=== PATIENT | female | born 1935 | race African-American/Black ===

== ENCOUNTER → 2016-02-26 | Outpatient (CLI) | payer MEDICARE ==
[~2016-02-26] MED LIST: ALLO100 PO; AZOR PO; CORE25TA PO; POTA-243 PO; TEKT300T PO
[2016-02-26 11:19] LABS: AUTOMATED NEUTROPHIL # 1.2 TH/MM3 (1.8-7.7); BASOPHIL % 1.1 % (0.0-2.0); EOSINOPHIL # 0.3 TH/MM3 (0-0.4); HEMO FLAGS DIFF FINAL; LYMPH % 41.4 % (9.0-44.0); LYMPHOCYTE # 1.4 TH/MM3 (1.0-4.8); MEAN CORPUSCULAR HEMOGLOBIN 31.6 PG (27.0-34.0); MEAN CORPUSCULAR HGB CONC 33.2 % (32.0-36.0); MONO % 13.4 % (0.0-8.0); NEUT % 34.1 % (16.0-70.0); PLATELET COUNT 263 TH/MM3 (150-450); RED BLOOD COUNT 3.69 MIL/MM3 (4.00-5.30); RED CELL DISTRIBUTION WIDTH 16.4 % (11.6-17.2); WHITE BLOOD COUNT 3.4 TH/MM3 (4.0-11.0)
[2016-02-26 11:31] LABS: ALKALINE PHOSPHATASE 93 U/L (45-117); ALT (GPT) 30 U/L (10-53); ANION GAP 9 MEQ/L (5-15); AST (GOT) 35 U/L (15-37); BICARBONATE 22.6 MEQ/L (21.0-32.0); BLOOD UREA NITROGEN 18 MG/DL (7-18); CHLORIDE 108 MEQ/L (98-107); GLOMERULAR FILTRATION RATE 82 ML/MIN (>89); GLUCOSE,FASTING 91 MG/DL (74-99); POTASSIUM 3.9 MEQ/L (3.5-5.1); SODIUM (NA) 140 MEQ/L (136-145); TOTAL BILIRUBIN ADULT 0.6 MG/DL (0.2-1.0); URIC ACID 6.4 MG/DL (2.6-6.0)
== END ==
LOC: ELAB 09:40
PROVIDERS: ATTEND Family Medicine
DX: I10 Essential (primary) hypertension (principal); E55.9 Vitamin D deficiency, unspecified; M10.9 Gout, unspecified; D70.9 Neutropenia, unspecified
CPT/HCPCS: 36415; 80053; 82306; 84550; 85025

== ENCOUNTER → 2016-07-01 | Outpatient (CLI) | payer MEDICARE ==
[2016-07-01 10:34] LABS: AUTOMATED NEUTROPHIL # 1.2 TH/MM3 (1.8-7.7); BASOPHIL % 1.1 % (0.0-2.0); EOSINOPHIL # 0.2 TH/MM3 (0-0.4); EOSINOPHIL % 5.8 % (0.0-4.0); HEMATOCRIT 35.8 % (35.0-46.0); HEMO FLAGS DIFF FINAL; LYMPH % 43.6 % (9.0-44.0); LYMPHOCYTE # 1.5 TH/MM3 (1.0-4.8); MEAN CELL VOLUME 89.3 FL (80.0-100.0); MEAN CORPUSCULAR HEMOGLOBIN 29.1 PG (27.0-34.0); MEAN CORPUSCULAR HGB CONC 32.6 % (32.0-36.0); MONO % 14.3 % (0.0-8.0); NEUT % 35.2 % (16.0-70.0); PLATELET COUNT 209 TH/MM3 (150-450); RED BLOOD COUNT 4.01 MIL/MM3 (4.00-5.30); RED CELL DISTRIBUTION WIDTH 17.3 % (11.6-17.2); WHITE BLOOD COUNT 3.4 TH/MM3 (4.0-11.0)
[2016-07-01 10:58] LABS: ALKALINE PHOSPHATASE 90 U/L (45-117); ALT (GPT) 38 U/L (10-53); ANION GAP 10 MEQ/L (5-15); AST (GOT) 45 U/L (15-37); BICARBONATE 22.9 MEQ/L (21.0-32.0); BLOOD UREA NITROGEN 23 MG/DL (7-18); CHLORIDE 109 MEQ/L (98-107); GLOMERULAR FILTRATION RATE 76 ML/MIN (>89); GLUCOSE,FASTING 89 MG/DL (74-99); POTASSIUM 3.4 MEQ/L (3.5-5.1); SODIUM (NA) 142 MEQ/L (136-145); TOTAL BILIRUBIN ADULT 0.5 MG/DL (0.2-1.0); URIC ACID 5.1 MG/DL (2.6-6.0)
[2016-07-01 11:42] LABS: BLOOD, URINE NEG (NEG); COMMENT (UR) CULTURE INDICATED; CULTURE IF INDICATED CULTURE INDICATED; GLUCOSE,URINE NEG (NEG); KETONE, URINE NEG (NEG); NITRITE,URINE NEG (NEG); PH, URINE 6.5 (5.0-8.5); SQUAMOUS EPITHELIAL CELL URINE 2 /hpf (0-5); URINE COLOR YELLOW (YELLW/STRAW)
[2016-07-01 11:53] LABS: BACTERIA, URINE MOD /hpf
== END ==
LOC: ELAB 08:49
PROVIDERS: ATTEND Family Medicine
DX: E55.9 Vitamin D deficiency, unspecified (principal); M10.9 Gout, unspecified; D70.9 Neutropenia, unspecified; E87.6 Hypokalemia; N39.0 Urinary tract infection, site not specified
CPT/HCPCS: 36415; 80053; 81001; 82306; 84550; 85025; 87086

== ENCOUNTER 2016-08-28 13:26 | Emergency (ER) | payer MEDICARE ==
[~2016-08-28] VITALS: Ht 162.6 cm; Wt 65.0 kg
[2016-08-28 13:28] VITALS: BP 183/84; PULSE 58; RESP 20; TEMP 97.8; O2SAT 100
[2016-08-28 14:00] VITALS: BP 155/67; PULSE 87; RESP 18; O2SAT 98
[2016-08-28] MEDS ORDERED: ASPI-119 PO (14:07)
[2016-08-28] MEDS ORDERED: CARV12.52 PO (14:07)
[2016-08-28] MEDS ORDERED: NIFE90TA2 (14:07)
[2016-08-28] MEDS ORDERED: FURO40TA PO (14:07)
[2016-08-28] MEDS ORDERED: ALLO300T2 PO (14:07)
[2016-08-28] MEDS ORDERED: OLME0.09 PO (14:07)
[2016-08-28] MEDS ORDERED: POTA-243 PO (14:07)
[2016-08-28] MEDS ORDERED: TIMO0.5S30 EACH EYE (14:07)
[2016-08-28] MEDS ORDERED: NIFE30TA61 PO (14:07)
[2016-08-28] MEDS ORDERED: KETOROLAC TROMETHAMINE 60 MG/2 ML (IM) VIAL IM ONE (14:30)
--- NOTE | 2016-08-28 15:54 | PD ---
HPI Chief Complaint: Pain: Acute or Chronic Time Seen by Provider: 15:00 Travel History International Travel<30 days: No Contact w/Intl Traveler<30days: No Traveled to known affect area: No History of Present Illness HPI 81-year-old female presents emergency department for evaluation of right low back and buttocks pain that radiates down into the leg. Patient reports this is been ongoing for approximately 2 weeks. She denies injury or fall. She reports similar pain in the past. The pain is unrelieved by Tylenol. Symptoms severity moderate. No alleviating or aggravating factors. Patient denies fever , incontinence, saddle anesthesia, numbness/weakness of lower extremities. PFSH Past Medical History Cancer: No Cardiovascular Problems: Yes (HTN) Chemotherapy: No (R BREAST) Diabetes: No Glaucoma: No Hepatitis: No Hiatal Hernia: No Hypertension: Yes Medical other: Yes (gout) Thyroid Disease: No Tetanus Vaccination: < 5 Years Past Surgical History Abdominal Surgery: Yes (CHOLECYSTECTOMY) Eye Surgery: Yes (LEFT EYE CATARACT EXTRACT, VITRECTOMY) Mastectomy: Yes (right breast ) Pacemaker: No Other Surgery: Yes Social History Alcohol Use: No Tobacco Use: No Substance Use: No Allergies-Medications (Allergen,Severity, Reaction): Coded Allergies: Penicillin (Verified Allergy, Severe, rash, 08/28/16) Reported Meds & Prescriptions Reported Meds & Active Scripts Active Reported Timolol Opth Drops 0.5 % Soln 1 Drop EACH EYE DAILY Klor-Con 10 (Potassium Chloride) 10 Meq Tab 10 Meq PO BID Allopurinol 300 Mg Tab 300 Mg PO DAILY Nifedipine ER 24 HR (Nifedipine) 30 Mg Tab 30 Mg PO DAILY Furosemide 40 Mg Tab 40 Mg PO DAILY Fantasma Low Dose (Aspirin) 81 Mg Tabdr 81 Mg PO DAILY Olmesartan 20 Mg Tab 20 Mg PO DAILY Carvedilol 12.5 Mg Tab 12.5 Mg PO BID Review of Systems Except as stated in HPI: all other systems reviewed are Neg General / Constitutional: No: Fever Eyes: No: Visual changes HENT: No: Headaches Cardiovascular: No: Chest Pain or Discomfort Respiratory: No: Shortness of Breath Gastrointestinal: No: Abdominal Pain Genitourinary: No: Dysuria Physical Exam Narrative GENERAL: There, well-appearing female no acute distress. SKIN: Focused skin assessment warm/dry. HEAD: Atraumatic. Normocephalic. EYES: Pupils equal and round. No scleral icterus. No injection or drainage. ENT: No nasal bleeding or discharge. Mucous membranes pink and moist. NECK: Trachea midline. No JVD. CARDIOVASCULAR: Regular rate and rhythm. No murmur appreciated. RESPIRATORY: No accessory muscle use. Clear to auscultation. Breath sounds equal bilaterally. GASTROINTESTINAL: Abdomen soft, non-tender, nondistended. Hepatic and splenic margins not palpable. MUSCULOSKELETAL: No obvious deformities. No clubbing. No cyanosis. No edema. 5 out of 5 strength in lower extremity is. Normal sensation. 2+ distal pulses. BACK: No CVA tenderness. No rash. No point tenderness on palpation of the spine. Point tenderness over the right sacroiliac joint and into the right buttocks. Positive straight leg raise. NEUROLOGICAL: Awake and alert. No obvious cranial nerve deficits. Motor grossly within normal limits. Normal speech. PSYCHIATRIC: Appropriate mood and affect; insight and judgment normal. Data Data Last Documented VS Vital Signs Date Time Temp Pulse Resp B/P Pulse Ox O2 Delivery O2 Flow Rate FiO2 08/28/16 14:00 87 18 155/67 98 Room Air 08/28/16 13:28 97.8 Orders Ketorolac Inj (Toradol Inj) (08/28/16 14:30) [facility] Medical Decision Making Medical Screen Exam Complete: Yes Emergency Medical Condition: Yes Differential Diagnosis Sciatica, lumbar strain, sacroiliac pain Narrative Course 81-year-old female with approximately 2 week history of right low back pain that radiates into the buttocks and down the leg. She reports she's had similar pain in the past. Pain is unrelieved by Tylenol. Physical exam is reassuring. She has no CVA tenderness. No midline spine tenderness. Her physical exam is consistent with sciatica. Patient be treated with a shot of Toradol and instructed to take [id number] NSAIDs follow up with her primary doctor. Reassessment of patient she reports symptom improvement. Pain is relieved after Toradol. She is stable and ready for discharge. Diagnosis Primary Impression: Sciatica Qualified Code: M54.31 - Sciatica of right side Referrals: Primary Care Physician Additional Instructions: Take Tylenol or [id number] Motrin as needed for pain. Follow up with her primary care doctor for reevaluation. Disposition: 01 DISCHARGE HOME Condition: Stable Margy Villar Aug 28, 2016 15:54
== END 2016-08-28 16:19 | disposition home or self-care (01) ==
LOC: NEPD 13:26
DX: M54.31 Sciatica, right side (principal); I10 Essential (primary) hypertension; M10.9 Gout, unspecified; Z79.82 Long term (current) use of aspirin; Z79.899 Other long term (current) drug therapy
CPT/HCPCS: 96372; 99284; J1885

== ENCOUNTER → 2017-01-03 | Outpatient (CLI) | payer MEDICARE ==
[~2017-01-03] MED LIST changes: -ALLO100 PO; +ALLO300T2 PO; +ASPI-119 PO; -AZOR PO; +CARV12.52 PO; -CORE25TA PO; +FURO40TA PO; +KLOR10TA PO; +NIFE30TA61 PO; +OLME0.09 PO; -POTA-243 PO; -TEKT300T PO; +TIMO0.5S30 EACH EYE
[2017-01-03 12:10] LABS: AUTOMATED NEUTROPHIL # 1.4 TH/MM3 (1.8-7.7); EOSINOPHIL # 0.2 TH/MM3 (0-0.4); EOSINOPHIL % 4.7 % (0.0-4.0); HEMATOCRIT 36.5 % (35.0-46.0); HEMO FLAGS DIFF FINAL; LYMPH % 45.3 % (9.0-44.0); LYMPHOCYTE # 1.7 TH/MM3 (1.0-4.8); MEAN CELL VOLUME 96.1 FL (80.0-100.0); MEAN CORPUSCULAR HEMOGLOBIN 31.3 PG (27.0-34.0); MEAN CORPUSCULAR HGB CONC 32.6 % (32.0-36.0); MONO % 12.8 % (0.0-8.0); NEUT % 36.2 % (16.0-70.0); PLATELET COUNT 230 TH/MM3 (150-450); RED CELL DISTRIBUTION WIDTH 16.3 % (11.6-17.2); WHITE BLOOD COUNT 3.8 TH/MM3 (4.0-11.0)
[2017-01-03 12:14] LABS: MUCUS URINE FEW /lpf (OCC); SQUAMOUS EPITHELIAL CELL URINE 3 /hpf (0-5); TRANSITIONAL EPI CELLS, URINE 5 /hpf
[2017-01-03 12:18] LABS: BLOOD, URINE NEG (NEG); GLUCOSE,URINE NEG (NEG); KETONE, URINE NEG (NEG); NITRITE,URINE NEG (NEG); URINE COLOR YELLOW (YELLW/STRAW)
[2017-01-03 12:41] LABS: ANION GAP 6 MEQ/L (5-15); AST (GOT) 49 U/L (15-37); BICARBONATE 24.8 MEQ/L (21.0-32.0); BLOOD UREA NITROGEN 27 MG/DL (7-18); CHLORIDE 106 MEQ/L (98-107); GLOMERULAR FILTRATION RATE 64 ML/MIN (>89); GLUCOSE,FASTING 84 MG/DL (74-99); POTASSIUM 3.7 MEQ/L (3.5-5.1); SODIUM (NA) 137 MEQ/L (136-145); URIC ACID 4.4 MG/DL (2.6-6.0)
[2017-01-03 12:42] LABS: ALT (GPT) 36 U/L (10-53)
[2017-01-03 12:44] LABS: ALKALINE PHOSPHATASE 90 U/L (45-117); TOTAL BILIRUBIN ADULT 0.7 MG/DL (0.2-1.0)
== END ==
LOC: ELAB 10:49
PROVIDERS: ATTEND Family Medicine
DX: E55.9 Vitamin D deficiency, unspecified (principal); M10.9 Gout, unspecified; E78.6 Lipoprotein deficiency; D70.9 Neutropenia, unspecified; N39.0 Urinary tract infection, site not specified
CPT/HCPCS: 36415; 80053; 81001; 82306; 84550; 85025